=== PATIENT | male | born 1985 | race Caucasian/White ===

== ENCOUNTER 2019-03-05 09:24 | Inpatient (IN) ==
[2019-03-05] MEDS ORDERED: LIBRIUM PO PRN (12:11)
[2019-03-05] MEDS ORDERED: SENOKOT PO PRN (12:11)
[2019-03-05] MEDS ORDERED: MOTRIN PO PRN (12:11)
[2019-03-05] MEDS ORDERED: IMODIUM PO PRN (12:11)
[2019-03-05] MEDS ORDERED: ZOFRAN ODT PO PRN (12:11)
[2019-03-05] MEDS ORDERED: SINEMET 25/100 PO PRN (12:11)
[2019-03-05] MEDS ORDERED: BENTYL PO PRN (12:11)
[2019-03-05] MEDS ORDERED: ZOFRAN IV PRN (12:11)
[2019-03-05] MEDS ORDERED: TYLENOL PO PRN (12:11)
[2019-03-05] MEDS ORDERED: D5W 1,000 ML IV PRN (12:11)
[2019-03-05] MEDS ORDERED: TUBERSOL ID ONE (12:11)
[2019-03-05] MEDS ORDERED: PHENOBARBITAL IV PRN (12:11)
[2019-03-05] MEDS ORDERED: DESYREL PO PRN (12:11)
[2019-03-05] MEDS ORDERED: DULCOLAX PR PRN (12:11)
[2019-03-05] MEDS ORDERED: ROBAXIN PO PRN (12:11)
[2019-03-05] MEDS ORDERED: SUBOXONE 2 MG/0.5 MG FILM SL SCH (12:15)
[2019-03-05 12:59] LABS: HEMATOCRIT 45.4 % (42.0-52.0); HEMOGLOBIN 14.9 g/dL (14.0-18.0); MCH 29.4 PG (27-31); MCHC 32.8 g/dL (33-37); MCV 89.5 FL (81-99); MPV 9.6 FL (7.4-10.4); RBC 5.07 XMIL (4.7-6.1); RDW 14.9 % (11.5-14.5); WBC 9.43 X1000 (4.8-10.8)
[2019-03-05 13:13] LABS: AMYLASE 51 U/L (20-200); LIPASE 20 U/L (13-60)
[2019-03-05 13:18] LABS: AGAP 10; ALBUMIN 3.9 g/dL (3.5-5.0); ALKALINE PHOSPHATASE 75 U/L (32-122); BUN 13 mg/dL (8-22); CALCIUM 8.6 mg/dL (8.8-10.2); CHLORIDE 102 mmol/L (98-107); COSMO 285; CREATININE 0.7 mg/dL (0.7-1.2); ESTIMATED GFR > 60; GLUCOSE 124 mg/dL (70-104); GOT 16 U/L (10-34); GPT 26 U/L (10-44); SODIUM 142 mmol/L (136-145); TCO2 30 mmol/L (25-35); TOTAL PROTEIN 7.7 g/dL (6.3-8.3)
[2019-03-05 13:31] LABS: INR 0.96; PROTIME 13.3 Seconds (11.0-16.0)
[2019-03-05 16:49] LABS: URINE SOURCE CLEAN CATCH
[2019-03-05 17:01] LABS: UR AMPHETAMINES QUAL PRESUMPTIVE POSITIVE (NONE DETECT); UR BARBITUATES QUAL NONE DETECTED (NONE DETECT); UR BENZODIAZEPIN QUAL NONE DETECTED (NONE DETECT); UR CANNABINOIDS QUAL NONE DETECTED (NONE DETECT); UR COCAINE QUAL NONE DETECTED (NONE DETECT); UR METHADONE QUAL NONE DETECTED (NONE DETECT); UR METHAMPHETAMINE QUAL NONE DETECTED (NONE DETECT); UR OPIATES QUAL NONE DETECTED (NONE DETECT); UR OXYCODONE QUAL NONE DETECTED (NONE DETECT); UR PCP QUAL NONE DETECTED (NONE DETECT); UR PROPOXYPHENE QUAL NONE DETECTED (NONE DETECT); UR TCA QUAL NONE DETECTED (NONE DETECT)
[2019-03-05 17:05] LABS: BILIRUBIN URINE NEGATIVE (NEGATIVE); BLOOD URINE TRACE (NEGATIVE); COLOR YELLOW; GLUCOSE URINE NEGATIVE (NEGATIVE); KETONE URINE NEGATIVE (NEGATIVE); LEUKOCYTES URINE NEGATIVE (NEGATIVE); NITRITE URINE NEGATIVE (NEGATIVE); PROTEIN URINE NEGATIVE (NEGATIVE); SP GRAVITY URINE 1.015; UROBILINOGEN URINE NORMAL
[2019-03-05 17:07] LABS: URINE RBC <10 /HPF (<10); URINE WBC <10 /HPF (<10)
[2019-03-05 17:08] LABS: CLARITY SLIGHTLY CLOUDY (CLEAR); URINE BACTERIA 1+ /HFP; URINE CAST NONE SEEN /LPF; URINE CRYSTAL NONE SEEN /HPF; URINE EPITHELIAL CELLS <10 /HPF (<10); URINE YEAST NONE SEEN /HPF
[2019-03-05] MEDS ORDERED: TORADOL IV ONE (19:16)
[2019-03-05] MEDS: SUBOXONE 2 MG/0.5 MG FILM SL SCH (20:50)
[2019-03-05] MEDS: NICODERM PATCH TD PRN (21:26)
[2019-03-06] MEDS: PROTONIX PO SCH (06:14)
[2019-03-06] MEDS: ATARAX PO PRN ×2 (06:18→15:23)
[2019-03-06] MEDS: THERA M PLUS PO SCH (09:02)
[2019-03-06] MEDS: FOLIC ACID PO SCH (09:02)
[2019-03-06] MEDS: VITAMIN B-1 PO SCH (09:02)
[2019-03-06] MEDS: SUBOXONE 2 MG/0.5 MG FILM SL SCH ×2 (09:03→09:08)
--- NOTE | 2019-03-06 13:38 | HISTORY AND PHYSICAL ---
CHIEF COMPLAINT: Nausea and vomiting. HISTORY OF PRESENT ILLNESS: The patient is a 33-year-old male who presented to [facility] secondary to nausea, vomiting, abdominal pain, myalgias. States he has been using poly substances. He has been trying to stop. His withdrawal symptoms have become too severe requiring him to start using again. SOCIAL HISTORY: The patient is . He is currently unemployed. Lives at home in [place]. PAST MEDICAL HISTORY: Significant for 1. ADD. 2. Chronic anxiety and depression. 3. History of seizures approximately a month ago that was felt to be medication related. 4. History of cellulitis due to injections. ALLERGIES: No known drug allergies. PRESCRIPTION MEDICATIONS: He is on no current prescription medications. REVIEW OF SYSTEMS: CINA score is 8 secondary to nausea, vomiting, abdominal pain, myalgias, hot and cold chills. Denies any chest pain, palpitations. Denies fevers, cough, congestion or other upper respiratory type symptoms. Denies any chest pain, palpitations. Denies any current skin rashes, weight loss, weight gain. Denies diarrhea, constipation, melena, hematochezia. SUBSTANCE ABUSE HISTORY: The patient was in [facility] outpatient counseling in 1994. He currently is on probation due to substance abuse. Started marijuana at age 12, currently uses occasionally. Started stimulants at age 32, currently uses 1 to 1-1/2 g IV meth. Started smoking at age 12, currently smokes pack a day. PHYSICAL EXAMINATION: VITAL SIGNS: Reviewed and stable. GENERAL: He is awake, alert. He is in no current respiratory distress. He is somewhat ill- appearing due to his withdrawal symptoms. HEENT: Normocephalic. NECK: Supple. CARDIOVASCULAR: Regular rate. No murmurs. CHEST: Clear and nonlabored. ABDOMEN: Soft, nondistended, nontender. EXTREMITIES: Moves all extremities. ASSESSMENT: 1. Nausea and vomiting. 2. Abdominal pain. 3. paresthesias. 4. Paroxysmal sweating. 5. Polysubstance use and abuse, marijuana, meth, and cigarettes. We will admit patient to the hospital, place him on Suboxone. We will continue to wean. Continue counseling. Further orders as needed. cc: Raul Lozada MD [facility]ENTERBill
[2019-03-06] MEDS: MAALOX PLUS LIQUID PO PRN ×2 (14:13→20:47)
--- NOTE | 2019-03-06 14:29 | PROGRESS NOTE ---
DATE: 03/06/2019 SUBJECTIVE: Patient states that he feels terrible. His 1st dose Suboxone he felt a little bit better, but the 2nd one notes that he has had nausea and occasional vomiting since then. Feels though it actually made him worse. Denies any other fevers or chills. Denies other complications currently. PHYSICAL EXAMINATION: Vital Signs: Reviewed. Temperature 97.5 degrees, pulse 86, respiratory 20, blood pressure 127/88. General: Patient is awake, alert, currently in no respiratory distress. He is pleasant to talk with. HEENT: Normocephalic. Neck: Supple. Cardiovascular: Regular rate. No murmurs. Chest: Clear, nonlabored. Abdomen: Soft, diffusely but mildly tender. No masses. No hepatosplenomegaly. Extremities: Moves all extremities. ASSESSMENT: 1. Nausea, vomiting, abdominal pain. 2. Myalgias. 3. Paresthesias. 4. Paroxysmal sweating. 5. Polysubstance use and abuse. PLAN: At this point, we will stop the Suboxone and switch to Librium taper. Continue counseling. Continue to follow. cc: Raul Lozada MD
[2019-03-06] MEDS: LIBRIUM PO SCH ×3 (15:20→22:38)
[2019-03-06] MEDS: SEROQUEL PO PRN (20:40)
[2019-03-06] MEDS: NICODERM PATCH TD PRN (20:47)
[2019-03-07] MEDS: LIBRIUM PO SCH ×3 (06:04→17:43)
[2019-03-07] MEDS: PROTONIX PO SCH (06:04)
[2019-03-07] MEDS: VITAMIN B-1 PO SCH (09:47)
[2019-03-07] MEDS: THERA M PLUS PO SCH (09:47)
[2019-03-07] MEDS: FOLIC ACID PO SCH (09:47)
[2019-03-07] MEDS: SEROQUEL PO PRN (20:36)
[2019-03-07] MEDS: NICODERM PATCH TD PRN (20:36)
[2019-03-08] MEDS: LIBRIUM PO SCH ×2 (03:12→11:58)
[2019-03-08] MEDS: PROTONIX PO SCH (06:51)
[2019-03-08] MEDS: FOLIC ACID PO SCH (08:51)
[2019-03-08] MEDS: THERA M PLUS PO SCH (08:51)
[2019-03-08] MEDS: VITAMIN B-1 PO SCH (08:51)
--- NOTE | 2019-03-08 11:35 | PROGRESS NOTE ---
DATE: 03/07/2019 SUBJECTIVE: The patient is with no new complaints. States that overall he is feeling much better since the additional of Librium as opposed to Suboxone. PHYSICAL EXAMINATION: Vital Signs: Reviewed and stable. Temperature 97.9 degrees, pulse 92, respiratory 18, BP 147/95. General: Patient is awake, currently in no distress. HEENT: Normocephalic. Neck: Supple. Cardiovascular: Regular rate. No murmurs. Chest: Clear. Abdomen: Soft. Extremities: Moves all extremities. ASSESSMENT: 1. Nausea and vomiting. 2. Abdominal pain. 3. Myalgias. 4. Paresthesias. 5. Paroxysmal sweating. 6. Opiate abuse, withdrawal, and stabilization. PLAN: We will continue patient in the hospital. We will continue to wean Librium. Continue counseling. Further orders as needed. cc: Raul Lozada MD
[2019-03-08 13:41] VITALS: BP 125/85
--- NOTE | 2019-03-08 13:43 | DISCHARGE SUMMARY ---
ADMISSION DATE: 03/05/2019 DISCHARGE DATE: 03/08/2019 DISCHARGE DIAGNOSES: 1. Nausea, vomiting. 2. Abdominal pain. 3. Myalgias. 4. Paresthesias. 5. Paroxysmal sweating. 6. Polysubstance use and abuse. 7. Stabilization. CONSULTATIONS: None. PROCEDURES: None. BRIEF HOSPITAL COURSE: The patient is a 33-year-old male who [facility] secondary to nausea, vomiting, abdominal pain, myalgias, paresthesias, paroxysmal sweating. He was placed on medication assisted therapy, initially placed on Suboxone, but started having worsening withdrawal symptoms. Therefore, he was switched to Librium. His symptoms seemed to improve after that. Certainly concerning that he may be taking substances such as fentanyl that he is either aware or unaware of that this is the cause of the withdrawal due to Suboxone. Regardless, he had an uneventful hospital course otherwise. He was weaned down on Librium. On discharge, he is awake, alert. He is in no distress and overall is feeling better. DISPOSITION: We will discharge patient home on another 3-day Librium taper. We will not start naltrexone currently as he had worsened withdrawal symptoms with Suboxone. Certainly concerning that he may have had fentanyl and with other substances he was using. We will continue to follow. He will follow up outpatient with treatment facility of choice. Discussed with patient that he needs to avoid all persons, places, situations which he has been using and abusing in the past. cc: Raul Lozada MD
[2019-03-08] MEDS ORDERED: LIBRIUM PO SCH (21:00)
== END 2019-03-08 16:07 | disposition home or self-care (01) | DRG 897 ==
LOC: P.MEDSURG 10:02
PROVIDERS: ADMIT Family Medicine; ATTEND Family Medicine
CPT/HCPCS: 80053; 80104; 80301; 80305; 80307; 80320; 81001; 82055; 82150; 83690; 85027; 85610; A9270; G0431; G0434; G0477; G0480; G6040; J1885; J2405